=== PATIENT | male | born 1940 | race Caucasian/White ===

== ENCOUNTER 2022-09-24 12:31 | Inpatient (IN) | payer MEDICARE ==
[~2022-09-24] VITALS: Ht 180.3 cm; Wt 77.2 kg
[~2022-09-24 12:31] MED LIST: CLOP75TA15 PO; LOSA1TAB39 PO; NIFE-33 PO; OMEP40CA21 PO; SAW1CAPS5 PO
[2022-09-24 13:03] LABS: BASOPHILS % (AUTO) 0.8 % (0-1); EOSINOPHILS # (AUTO) 0.2 X10'3 (0-0.9); EOSINOPHILS % (AUTO) 3.3 % (0-6); HEMOGLOBIN 14.2 g/dl (14.0-17.9); LYMPHOCYTES # (AUTO) 1.7 X10'3 (1.1-4.8); LYMPHOCYTES % (AUTO) 31.1 % (21-51); MEAN CORPUSCULAR HGB CONC 33.8 g/dL (33.0-36.5); MEAN CORPUSCULAR VOLUME 100.5 FL (78-98); MEAN PLATELET VOLUME 8.4 FL (7.4-10.4); MONOCYTES # (AUTO) 0.7 X10'3 (0-0.9); MONOCYTES % (AUTO) 12.7 % (2-12); NEUTROPHILS # (AUTO) 2.8 X10'3 (1.8-7.7); NEUTROPHILS % (AUTO) 52.1 % (42-75); PLATELET COUNT 189 X10'3 (140-440); RED BLOOD COUNT 4.18 X10'6 (4.70-6.10); RED CELL DISTRIBUTION WIDTH 13.5 % (11.5-14.5); WHITE BLOOD COUNT 5.3 X10'3 (4.5-11.0)
[2022-09-24 13:18] LABS: APTT 26 SECONDS (22-32)
[2022-09-24 13:20] LABS: ALANINE AMINOTRANSFERASE 24 U/L (12-78); ALBUMIN 4.1 G/DL (3.4-5.0); ALBUMIN/GLOBULIN RATIO 1.5 (1.1-1.5); ALKALINE PHOSPHATASE 68 IU/L (46-116); ANION GAP 10 (8-16); ASPARTATE AMINO TRANSFERASE 17 U/L (10-37); BILIRUBIN,TOTAL 0.5 MG/DL (0.1-1.0); BLOOD UREA NITROGEN 29 MG/DL (7-18); BUN/CREATININE RATIO 19.9 (10.0-20.0); CALCIUM 9.4 MG/DL (8.5-10.1); CHLORIDE 105 MMOL/L (99-107); CREATININE 1.46 MG/DL (0.60-1.10); GLUCOSE 90 MG/DL (70-104); POTASSIUM 3.8 MMOL/L (3.5-5.1); SODIUM 140 MMOL/L (135-145); TOTAL CARBON DIOXIDE 24.8 MMOL/L (24-32); TOTAL PROTEIN 6.9 G/DL (6.4-8.2); eGFR 46 ML/MIN
[2022-09-24] MEDS ORDERED: iohexol 350MG/ML 100ml bottle IV ONE (14:56)
--- NOTE | 2022-09-24 14:57 | NUR ---
PT TALKING TO TELE
[2022-09-24 15:37] LABS: MAGNESIUM 2.3 MG/DL (1.5-2.4)
[2022-09-24] MEDS ORDERED: aspirin 325mg tablet PO ONE (16:45)
[2022-09-24] MEDS ORDERED: ondansetron/PF 4mg/2ml inj IV PRN (17:50)
[2022-09-24] MEDS ORDERED: magnesium 4gm in 100ml NS 100 ML IV PRN (17:50)
[2022-09-24] MEDS ORDERED: mag hydrox/Alum hydrox/simeth 30ml oral suspension PO PRN (17:50)
[2022-09-24] MEDS ORDERED: potassium Cl 40MEQ/1/2NS 520ml 520 ML IV PRN (17:50)
[2022-09-24] MEDS ORDERED: magnesium Cl slow-release 64mg tablet PO PRN (17:50)
[2022-09-24] MEDS ORDERED: acetaminophen 325mg tablet PO PRN (17:50)
[2022-09-24] MEDS ORDERED: potassium Cl 20 mEq SR tablet PO PRN ×2 (17:50)
[2022-09-24] MEDS ORDERED: magnesium 2GM in 50ml NS 50 ML IV PRN (17:50)
[2022-09-24] MEDS ORDERED: magnesium hydroxide 30ml (MOM) UD suspension PO PRN (17:50)
[2022-09-24] MEDS ORDERED: PERFLUTREN PROTEIN-A MICROSPHR (Optison) 0.22 MG/ML 3ML VIAL IV ONE (18:45)
[2022-09-24] MEDS ORDERED: VITA-268 PO (18:53)
[2022-09-24] MEDS ORDERED: ASPI-1265 PO (18:53)
[2022-09-24] MEDS: normal saline 1000ml 1,000 ML IV SCH (19:37)
[2022-09-24] MEDS: K and/or MAG REPLACEMENT MC SCH (20:35)
--- NOTE | 2022-09-24 20:57 | NUR ---
PAGED DR MEZA ABOUT PT WANTING TO LEAVE BECAUSE OF A BED NOT AVAIL.
--- NOTE | 2022-09-24 21:07 | NUR ---
PT TALKING TO DR CHAND ABOUT STAYING. PT WANTS TO LEAVE HOSPITAL
[2022-09-24] MEDS: heparin, porcine 5000 units/ml vial SQ SCH (21:27)
--- NOTE | 2022-09-24 22:56 | NUR ---
PT ON HOSPITAL BED.
[2022-09-25 03:12] LABS: BASOPHILS # (AUTO) 0.1 X10'3 (0-0.2); BASOPHILS % (AUTO) 1.1 % (0-1); EOSINOPHILS # (AUTO) 0.2 X10'3 (0-0.9); EOSINOPHILS % (AUTO) 3.7 % (0-6); HEMATOCRIT 41.9 % (42.0-52.0); HEMOGLOBIN 14.3 g/dl (14.0-17.9); LYMPHOCYTES % (AUTO) 31.6 % (21-51); MEAN CORPUSCULAR HEMOGLOBIN 34.2 PG (27.0-31.0); MEAN CORPUSCULAR HGB CONC 34.1 g/dL (33.0-36.5); MEAN CORPUSCULAR VOLUME 100.3 FL (78-98); MEAN PLATELET VOLUME 8.6 FL (7.4-10.4); MONOCYTES # (AUTO) 0.6 X10'3 (0-0.9); MONOCYTES % (AUTO) 9.5 % (2-12); NEUTROPHILS # (AUTO) 3.4 X10'3 (1.8-7.7); NEUTROPHILS % (AUTO) 54.1 % (42-75); PLATELET COUNT 179 X10'3 (140-440); RED BLOOD COUNT 4.18 X10'6 (4.70-6.10); WHITE BLOOD COUNT 6.2 X10'3 (4.5-11.0)
--- NOTE | 2022-09-25 03:12 | NUR ---
Patient in room ED 9. I have received report from ANGE Plummer and had the opportunity to ask questions and assume patient care.
[2022-09-25 03:28] LABS: HEMOGLOBIN A1C 5.5 % (4.5-6.2)
--- NOTE | 2022-09-25 03:30 | NUR ---
pt arrived to floor via hospital bed accompanied by er staff. tele monitor applied. ivf started per order. will continue to monitor.
[2022-09-25 03:33] LABS: ANION GAP 8 (8-16); BLOOD UREA NITROGEN 25 MG/DL (7-18); BUN/CREATININE RATIO 20.5 (10.0-20.0); CALCIUM 9.4 MG/DL (8.5-10.1); CHLORIDE 104 MMOL/L (99-107); CREATININE 1.22 MG/DL (0.60-1.10); GLUCOSE 98 MG/DL (70-104); MAGNESIUM 2.2 MG/DL (1.5-2.4); PHOSPHORUS 3.5 MG/DL (2.3-4.5); POTASSIUM 4.2 MMOL/L (3.5-5.1); SODIUM 141 MMOL/L (135-145); TOTAL CARBON DIOXIDE 28.6 MMOL/L (24-32); eGFR 57 ML/MIN
[2022-09-25 03:34] LABS: ALANINE AMINOTRANSFERASE 22 U/L (12-78); ALBUMIN 3.8 G/DL (3.4-5.0); ALBUMIN/GLOBULIN RATIO 1.3 (1.1-1.5); ALKALINE PHOSPHATASE 64 IU/L (46-116); ASPARTATE AMINO TRANSFERASE 16 U/L (10-37); BILIRUBIN,TOTAL 0.5 MG/DL (0.1-1.0); CHOL/HDL RATIO 3.1 (0.00-4.99); CHOLESTEROL 211 MG/DL (0-200); HDL CHOLESTEROL 67 MG/DL (35-60); LDL CHOLESTEROL 118 MG/DL (50-100); TOTAL PROTEIN 6.7 G/DL (6.4-8.2); TRIGLYCERIDES 62 MG/DL (20-135)
[2022-09-25 03:51] VITALS: BP 134/73; PULSE 57; RESP 18; TEMP 97.8; O2SAT 97
[2022-09-25 06:00] VITALS: BP 127/66; PULSE 63; RESP 18; TEMP 97.7; O2SAT 100
--- NOTE | 2022-09-25 06:09 | NUR ---
Problems reprioritized. Patient report given, questions answered & plan of care reviewed with ANGE Arnold.
--- NOTE | 2022-09-25 06:29 | NUR ---
Patient in room [facility] 4023. I have received report from ANGE Rockwell and had the opportunity to ask questions and assume patient care.
[2022-09-25] MEDS ORDERED: clopidogrel 75mg tablet PO SCH (08:00)
[2022-09-25] MEDS: K and/or MAG REPLACEMENT MC SCH (08:00)
[2022-09-25] MEDS ORDERED: aspirin 81mg, enteric-coated 1 TAB TABLET.DR PO SCH (08:00)
[2022-09-25] MEDS: normal saline 1000ml 1,000 ML IV SCH (08:10)
[2022-09-25] MEDS: heparin, porcine 5000 units/ml vial SQ SCH (08:24)
[2022-09-25 10:00] VITALS: BP 108/68; PULSE 60; RESP 18; TEMP 98.1; O2SAT 97
--- NOTE | 2022-09-25 14:13 | NUR ---
PT stated that patient is ready for discharged and is able to ambulate independently.
--- NOTE | 2022-09-25 14:36 | NUR ---
Message: has been cleared by PT, may pt discharge? - Anuradha
[2022-09-25] MEDS ORDERED: ZET10T PO (16:43)
[2022-09-25] MEDS ORDERED: ASPI-1071 PO (16:43)
[2022-09-25] MEDS ORDERED: CLOP75TA34 PO (16:43)
[2022-09-25] MEDS ORDERED: ezetimibe 10mg tablet PO SCH (17:10)
--- NOTE | 2022-09-25 17:22 | NUR ---
Patient left in stable condition with daughter in a private vehicle. Discharge instruction and education prior to departing. Patient verbalized that he understood discharge instructions and would make an appointment with his primary provider within one week. IV discontinued with no bleeding and was taken down to lobby in a wheelchair.
== END 2022-09-25 17:30 | disposition home or self-care (01) | DRG 65 ==
LOC: ER 12:32 → ED HOLD 17:51 → UNDOADMIN 17:51 → ORTHO 4S 09-25 03:20
PROVIDERS: ADMIT Family Medicine; ATTEND Family Medicine
PROC: B3251ZZ Computerized Tomography (CT Scan) of Bilateral Common Carotid Arteries using Low Osmolar Contrast (ICD-10-PCS; principal; 2022-09-24)
PROC: B32G1ZZ Computerized Tomography (CT Scan) of Bilateral Vertebral Arteries using Low Osmolar Contrast (ICD-10-PCS; 2022-09-24)
PROC: B3281ZZ Computerized Tomography (CT Scan) of Bilateral Internal Carotid Arteries using Low Osmolar Contrast (ICD-10-PCS; 2022-09-24)
DX: I63.9 Cerebral infarction, unspecified (principal); G81.91 Hemiplegia, unspecified affecting right dominant side; N17.9 Acute kidney failure, unspecified; I25.10 Atherosclerotic heart disease of native coronary artery without angina pectoris; I10 Essential (primary) hypertension; R29.705 NIHSS score 5; I25.2 Old myocardial infarction; Z86.711 Personal history of pulmonary embolism; Z88.6 Allergy status to analgesic agent; Z95.1 Presence of aortocoronary bypass graft
CPT/HCPCS: 36415; 70450; 70496; 70498; 70551; 71045; 80053; 80061; 82948; 83036; 83735; 84100; 84443; 85025; 85610; 85730; 87081; 93005; 93306; 93880; 97116; 97161; 97530; 99285; G0378; J1644; J3490; J7030; Q9967